=== PATIENT | female | born 1990 | race Caucasian/White ===

== ENCOUNTER 2024-06-18 09:28 | Day surgery (SDC) | payer BC ==
[2024-06-18] MEDS ORDERED: Decadron 4 MG INJ IV ONE (09:29)
[2024-06-18] MEDS ORDERED: LIDOCAINE HCL 1% AMPUL 5 ML IJ ONE (09:29)
[2024-06-18 10:28] LABS: HCG URINE TEST NEGATIVE (NEGATIVE)
[2024-06-18] MEDS ORDERED: DIPRIVAN 200 MG/20 ML IV ONE (11:14)
--- NOTE | 2024-06-18 11:39 | XRAY ---
Indication: Bilateral piriformis injection. Intraoperative fluoroscopy provided for 27 seconds. 3 digital spot image submitted for interpretation demonstrates posterior needle tip projecting over left and right piriformis. Small amount of contrast injected for both needle tip placement. Correlate with intraoperative findings/report.
--- NOTE | 2024-06-18 12:31 | XRAY ---
27 seconds of fluoroscopy was used in surgery for a bilateral piriformis injection.
== END 2024-06-18 11:40 | disposition home or self-care (01) ==
LOC: SDC-PAIN 09:28
PROVIDERS: ATTEND Psychiatry & Neurology Pain Medicine
DX: M79.18 Myalgia, other site (principal)
CPT/HCPCS: 20552; 72170; 77002; 81025; 82947; J1100; J2704; Q9966